=== PATIENT | female | born 1980 | race Caucasian/White ===

== ENCOUNTER 2020-03-24 20:20 | Observation (INO) ==
[2020-03-24 20:49] LABS: Bacteria,Urine Few per hpf (None-Few); Bilirubin,Urine Negative (Negative); Blood,Urine Negative (Negative); Clarity,Urine Turbid (Clear); Color,Urine Yellow (Yellow); Glucose,Urine (UA) Normal (Normal); Ketones,Urine Negative (Negative); Leukocyte Esterase,Urine Small (Negative); Mucus,Urine Few per lpf (None-Few); Nitrite,Urine Negative (Negative); Protein,Urine 30 mg/dL (Neg-Trace); Specific Gravity,Urine 1.026 (1.010-1.025); Squamous Epithelial Cell,Urine Few per hpf (None-Few); Urobilinogen,Urine Normal (Normal)
== END 2020-03-24 21:49 | disposition home or self-care (01) ==
LOC: 1NENULAB
PROVIDERS: ADMIT Student in an Organized Health Care Education/Training Program; ATTEND Student in an Organized Health Care Education/Training Program

== ENCOUNTER 2020-07-09 09:04 | Observation (INO) | END 2020-07-09 11:15 | disposition home or self-care (01) | LOC: 1NENULAB | PROVIDERS: ADMIT Obstetrics & Gynecology; ATTEND Obstetrics & Gynecology ==

== ENCOUNTER 2020-07-28 08:16 | Inpatient (IN) ==
[2020-07-28] MEDS ORDERED: Metoclopramide 10 MG/2 ML VIAL IVP ONE (08:39)
[2020-07-28] MEDS ORDERED: Famotidine 20 MG/2 ML VIAL IVP ONE (08:39)
[2020-07-28] MEDS ORDERED: CeFAZolin 2,000 MG/50 ML BAG IVPB ONE (08:39)
[2020-07-28] MEDS ORDERED: Ringers Solution, Lactated 1,000 ML IVC ONE (08:39)
[2020-07-28] MEDS ORDERED: Ringers Solution, Lactated 1,000 ML IVC SCH ×2 (08:45→14:54)
[2020-07-28 09:08] LABS: Basophils # 0.1 K/mcL (0.0-0.2); Basophils % 0.3 %; Eosinophils # 0.1 K/mcL (0.0-0.6); Eosinophils % 0.8 %; Hematocrit 31.3 % (35.3-44.9); Immature Granulocytes % 1.3 % (0-4); Lymphocytes # 2.2 K/mcL (0.6-4.6); Lymphocytes % 15.4 %; Mean Corpuscular HGB Conc 31.9 g/dL (31.6-35.5); Mean Corpuscular Hemoglobin 27.9 pg (28.0-33.3); Mean Corpuscular Volume 87.2 fL (83.0-100.0); Mean Platelet Volume 10.3 fL (9.4-12.4); Monocytes # 0.9 K/mcL (0.0-1.3); Neutrophils # 10.9 K/mcL (1.6-8.9); Nucleated Red Blood Cells 0.1 /100 WBC (0); Platelet Count 230 K/mcL (140-400); Red Blood Count 3.59 M/mcL (3.82-4.97); Red Cell Distribution Width 14.6 % (11.5-14.5); Segmented Neutrophils % 76.2 %; White Blood Count 14.4 K/mcL (4.3-11.1)
[2020-07-28] MEDS ORDERED: *HR* Morphine Sulfate/PF 10 MG/10 ML AMPUL ONE (09:13)
[2020-07-28] MEDS ORDERED: *HR* FentaNYL (PF) 100 MCG/2 ML VIAL ONE (09:13)
[2020-07-28] MEDS ORDERED: EPHEDrine 50 MG/ML VIAL ONE ×2 (09:13→10:53)
[2020-07-28] MEDS ORDERED: Ondansetron 4 MG/2 ML VIAL ONE (09:16)
[2020-07-28] MEDS ORDERED: Acetaminophen IV 1,000 MG/100 ML BAG IVPB ONE (09:16)
[2020-07-28 09:25] LABS: Amphetamine Screen,Urine Negative ng/mL (Cutoff=1000); Barbiturate Screen,Urine Negative ng/mL (Cutoff=200); Benzodiazepines Screen,Urine Negative ng/mL (Cutoff=200); Cannabinoid Screen,Urine Negative ng/mL (Cutoff = 50); Cocaine Screen,Urine Negative ng/mL (Cutoff= 300); Opiate Screen,Urine Negative ng/mL (Cutoff=300); Phencyclidine Screen,Urine Negative ng/mL (Cutoff=25)
[2020-07-28] MEDS ORDERED: *HR* OxyCODONE Immed Rel 5 MG TABLET PO PRN (09:38)
[2020-07-28] MEDS ORDERED: *HR* HYDROmorphone PF 0.5 MG/0.5 ML SYRINGE IVP PRN (09:38)
[2020-07-28] MEDS ORDERED: Ondansetron 4 MG/2 ML VIAL IVP PRN ×2 (09:38→14:54)
[2020-07-28] MEDS ORDERED: Oxytocin 20 units/ LR 1000 mL 20 UNIT/1,000 ML BAG IVC ONE (09:50)
[2020-07-28 10:08] LABS: Adenovirus Not Detected (Not Detect); Coronavirus 229E Not Detected (Not Detect); Coronavirus HKU1 Not Detected (Not Detect); Coronavirus NL63 Not Detected (Not Detect); Coronavirus OC43 Not Detected (Not Detect); Human Metapneumovirus Not Detected (Not Detect); Human Rhinovirus/Enterovirus Not Detected (Not Detect); Influenza A Subtype 2009 H1 Not Detected (Not Detect); Influenza B Not Detected (Not Detect); Parainfluenza Virus 1 Not Detected (Not Detect); Parainfluenza Virus 2 Not Detected (Not Detect); Parainfluenza Virus 3 Not Detected (Not Detect); Parainfluenza Virus 4 Not Detected (Not Detect); SARS-CoV-2 Not Detected (Not Detect)
[2020-07-28 10:09] LABS: Bordetella Pertussis Not Detected (Not Detect); Chlamydophila pneumoniae Not Detected (Not Detect); Mycoplasma pneumoniae Not Detected (Not Detect); Respiratory Syncytial Virus Not Detected (Not Detect)
[2020-07-28] MEDS ORDERED: Ketamine *HR* 500 MG/10 ML MDV ONE (11:31)
[2020-07-28] MEDS ORDERED: Rho Immune Globulin 1,500 UNIT SYRINGE IM ONE (14:54)
[2020-07-28] MEDS ORDERED: Naloxone 0.4 MG/ML INJ IVP PRN (14:54)
[2020-07-28] MEDS ORDERED: Sennosides 8.6 MG TABLET PO PRN (14:54)
[2020-07-28] MEDS ORDERED: Metoclopramide 10 MG/2 ML VIAL IVP PRN (14:54)
[2020-07-28] MEDS: Oxytocin 20 units/ LR 1000 mL 20 UNIT/1,000 ML BAG IVC SCH ×2 (15:23→22:50)
[2020-07-28] MEDS ORDERED: Ondansetron 4 MG/2 ML VIAL IVP ONE (21:00)
[2020-07-28] MEDS: Ibuprofen 600 MG TABLET PO PRN (22:58)
[2020-07-29 04:32] LABS: Basophils % 0.2 %; Eosinophils % 0.2 %; Hematocrit 24.7 % (35.3-44.9); Immature Granulocytes % 0.9 % (0-4); Lymphocytes # 1.3 K/mcL (0.6-4.6); Lymphocytes % 7.6 %; Mean Corpuscular Hemoglobin 28.1 pg (28.0-33.3); Mean Corpuscular Volume 87.9 fL (83.0-100.0); Mean Platelet Volume 10.1 fL (9.4-12.4); Monocytes # 0.9 K/mcL (0.0-1.3); Monocytes % 5.2 %; Neutrophils # 14.3 K/mcL (1.6-8.9); Platelet Count 194 K/mcL (140-400); Red Blood Count 2.81 M/mcL (3.82-4.97); Red Cell Distribution Width 14.7 % (11.5-14.5); Segmented Neutrophils % 85.9 %; White Blood Count 16.7 K/mcL (4.3-11.1)
[2020-07-29 04:33] LABS: Hemoglobin 7.9 g/dL (11.5-15.4)
[2020-07-29] MEDS: Ibuprofen 600 MG TABLET PO PRN ×3 (05:20→20:31)
[2020-07-29] MEDS: Simethicone 80 MG TAB.CHEW PO PRN ×3 (05:21→20:32)
[2020-07-29] MEDS: Acetaminophen 325 MG TABLET PO PRN ×2 (08:00→15:13)
[2020-07-29] MEDS: Prenatal Vit/FA 1 EACH TABLET PO SCH (08:00)
[2020-07-29] MEDS: *HR* OxyCODONE Immed Rel 5 MG TABLET PO PRN ×3 (08:00→20:32)
[2020-07-29] MEDS ORDERED: NON-FORMULARY MEDICATION 1 EACH EACH (Pnv No.95/Ferrous Fum/Folic Ac [Prenatal Caplet] 1 T PO SCH (09:00)
[2020-07-29] MEDS ORDERED: SUMAtriptan succinate 50 MG TABLET PO ONE (18:11)
[2020-07-30] MEDS: *HR* OxyCODONE Immed Rel 5 MG TABLET PO PRN ×3 (00:27→09:14)
[2020-07-30] MEDS: Acetaminophen 325 MG TABLET PO PRN ×2 (00:28→09:14)
[2020-07-30] MEDS: Ibuprofen 600 MG TABLET PO PRN (04:12)
[2020-07-30 08:24] VITALS: BP 107/72
[2020-07-30] MEDS: Prenatal Vit/FA 1 EACH TABLET PO SCH (09:14)
== END 2020-07-30 16:24 | disposition home or self-care (01) | DRG 540 ==
LOC: SAMDAY 08:16 → 1NENULAB 08:22 → 1NENUOBS 14:28
PROVIDERS: ADMIT Obstetrics & Gynecology; ATTEND Obstetrics & Gynecology